=== PATIENT | female | born 1970 | race African-American/Black ===

== ENCOUNTER 2018-01-19 06:33 | Emergency (ER) | payer MEDICAID ==
[~2018-01-19] VITALS: Ht 154.9 cm; Wt 55.0 kg
[~2018-01-19 06:33] MED LIST: NORCO; OXYC-23 PO; RANI150T12 PO; REGLAN
[2018-01-19] MEDS ORDERED: SODIUM CHLORIDE 0.9% 1,000 ML IV ONE (06:56)
[2018-01-19] MEDS ORDERED: FAMOTIDINE 20MG/2ML VIAL IV STA (06:56)
[2018-01-19] MEDS ORDERED: ONDANSETRON HCL 4MG/2ML VIAL IV STA (06:56)
[2018-01-19 07:34] LABS: BASOPHILS % 0.4 % (0.0-2.0); EOSINOPHILS % 0.1 % (0.0-5.0); HEMATOCRIT. 39.8 % (36.0-48.0); HEMOGLOBIN. 13.6 g/dL (12.0-16.0); LYMPHOCYTES % 15.6 % (20.0-50.0); MEAN CORPUSCULAR HEMOGLOBIN 32.2 pg (28.0-32.0); MEAN CORPUSCULAR VOLUME 94.1 fL (81.0-99.0); MEAN PLATELET VOLUME 8.3 fl (7.4-10.4); MONOCYTES % 2.5 % (2.0-8.0); NEUTROPHILS % 81.4 % (40.0-76.0); PLATELET 343 x1000/uL (130-400); RED BLOOD CELL COUNT 4.23 mill/uL (4.2-5.4)
[2018-01-19 07:39] LABS: CHLORIDE 110 mEq/L (98-107)
[2018-01-19 07:43] LABS: ETHANOL BLOOD 30 mg/dL
[2018-01-19] MEDS ORDERED: MORPHINE SULFATE 4 MG/ML CPJ (NOT FOR IM USE) IV ONE (07:45)
[2018-01-19 08:01] LABS: PARTIAL THROMBOPLASTIN TIME 23.1 sec (23.4-31.0); PROTHROMBIN TIME 10.9 sec (9.4-11.6)
[2018-01-19 08:18] LABS: CLARITY URINE CLOUDY (CLEAR); COLOR URINE YELLOW (YELLOW); KETONES URINE 1+ (NEGATIVE); LEUKOCYTE ESTERASE URINE NEGATIVE (NEGATIVE); NITRITE URINE NEGATIVE (NEGATIVE); OCCULT BLOOD URINE 1+ (NEGATIVE); PROTEIN URINE TRACE (NEGATIVE); SPECIFIC GRAVITY URINE 1.025 (1.005-1.030); UROBILINOGEN URINE 0.2 E.U./dL (0.2-1.0)
[2018-01-19] MEDS ORDERED: ONDANSETRON HCL 4MG/2ML VIAL IV ONE (08:30)
[2018-01-19] MEDS ORDERED: MIDAZOLAM HCL 2 MG/2 ML VIAL IV ONE ×2 (08:45→10:15)
[2018-01-19 09:44] LABS: *BARBITURATES SCREEN URINE NEGATIVE (NEGATIVE); *BENZODIAZEPINES SCREEN URINE NEGATIVE (NEGATIVE)
[2018-01-19 09:45] LABS: *COCAINE SCREEN URINE NEGATIVE (NEGATIVE); METHADONE URINE SCREEN NEGATIVE (NEGATIVE); PHENCYCLIDINE URINE SCREEN NEGATIVE (NEGATIVE)
[2018-01-19 09:48] LABS: CANNABINOID URINE SCREEN PRESUMTIVE POSITIVE (NEGATIVE); OPIATES URINE SCREEN NEGATIVE (NEGATIVE)
[2018-01-19 09:49] LABS: *AMPHETAMINES SCREEN URINE NEGATIVE (NEGATIVE)
[2018-01-19] MEDS ORDERED: CEFTRIAXONE 1 G PREMIX 50 ML IV ONE (10:45)
[2018-01-19 11:25] VITALS: BP 115/72
== END 2018-01-19 11:43 | disposition home or self-care (01) ==
LOC: ER 06:33
DX: R10.816 Epigastric abdominal tenderness (principal); R11.2 Nausea with vomiting, unspecified; F10.229 Alcohol dependence with intoxication, unspecified; F17.200 Nicotine dependence, unspecified, uncomplicated; F12.10 Cannabis abuse, uncomplicated; Y90.1 Blood alcohol level of 20-39 mg/100 ml
CPT/HCPCS: 36415; 74021; 80053; 80305; 81003; 81025; 83690; 85025; 85610; 85730; 87086; 96361; 96365; 96375; 96376; 99285; G0482; J0696; J2250; J2270; J2405; J3490; J7030; Z7610

== ENCOUNTER 2018-01-21 22:08 | Emergency (ER) | payer MEDICAID | END 2018-01-22 | disposition left against medical advice (07) | LOC: ER 23:52 | DX: R10.9 Unspecified abdominal pain (principal); Z53.21 Procedure and treatment not carried out due to patient leaving prior to being seen by health care provider ==

== ENCOUNTER 2019-07-05 04:08 | Emergency (ER) | payer MEDICAID ==
[~2019-07-05] VITALS: Ht 154.9 cm; Wt 55.0 kg
[~2019-07-05 04:08] MED LIST changes: +RANI-655 PO; -RANI150T12 PO
[2019-07-05] MEDS ORDERED: ONDANSETRON HCL 4MG/2ML INJ IV STA (04:36)
[2019-07-05] MEDS ORDERED: SODIUM CHLORIDE 0.9% 1,000 ML IV ONE (04:36)
[2019-07-05 04:59] LABS: HEMOGLOBIN. 13.8 g/dL (12.0-16.0); MEAN CORPUSCULAR HEMOGLOBIN 32.5 pg (28.0-32.0); MEAN CORPUSCULAR VOLUME 96.3 fL (81.0-99.0); MEAN PLATELET VOLUME 8.2 fl (7.4-10.4); PLATELET 314 x1000/uL (130-400); RED BLOOD CELL COUNT 4.26 mill/uL (4.2-5.4)
[2019-07-05] MEDS ORDERED: KETOROLAC 30MG/ML VIAL IV ONE (05:15)
[2019-07-05 05:18] LABS: CHLORIDE 114 mEq/L (98-107)
[2019-07-05 06:28] LABS: CLARITY URINE CLOUDY (CLEAR); COLOR URINE DARK YELLOW (YELLOW); KETONES URINE 2+ (NEGATIVE); LEUKOCYTE ESTERASE URINE NEGATIVE (NEGATIVE); NITRITE URINE NEGATIVE (NEGATIVE); OCCULT BLOOD URINE TRACE (NEGATIVE); PH URINE 5.5 (4.5-8.0); PROTEIN URINE 1+ (NEGATIVE); SPECIFIC GRAVITY URINE 1.041 (1.005-1.030)
[2019-07-05] MEDS ORDERED: MORPHINE SULFATE 4 MG/ML CPJ (NOT FOR IM USE) IV ONE (06:30)
[2019-07-05 07:29] LABS: PLATELET ESTIMATE NORMAL
[2019-07-05 08:28] VITALS: BP 127/78
== END 2019-07-05 09:00 | disposition home or self-care (01) ==
LOC: ER 04:08
DX: R10.13 Epigastric pain (principal); R11.2 Nausea with vomiting, unspecified; F17.200 Nicotine dependence, unspecified, uncomplicated; F12.10 Cannabis abuse, uncomplicated; Z87.19 Personal history of other diseases of the digestive system; Z79.899 Other long term (current) drug therapy
CPT/HCPCS: 36415; 76705; 80053; 81003; 81025; 83690; 85025; 96361; 96374; 96375; 99284; J1885; J2270; J2405; J7030

== ENCOUNTER 2019-07-05 21:15 | Emergency (ER) | payer MEDICAID ==
[~2019-07-05] VITALS: Ht 160 cm; Wt 54.0 kg
[2019-07-05 21:24] VITALS: BP 148/64
== END 2019-07-05 23:50 | disposition left against medical advice (07) ==
LOC: ER 21:15
DX: R10.9 Unspecified abdominal pain (principal); Z53.21 Procedure and treatment not carried out due to patient leaving prior to being seen by health care provider

== ENCOUNTER 2019-07-06 04:27 | Emergency (ER) | payer MEDICAID ==
[~2019-07-06] VITALS: Ht 154.9 cm; Wt 54.5 kg
[2019-07-06] MEDS ORDERED: MAGNESIUM/ALUMINUM HYDROXIDE/SIMETHICONE 30ML UDC PO STA (06:26)
[2019-07-06] MEDS ORDERED: ONDANSETRON HCL 4MG/2ML INJ IV STA (06:26)
[2019-07-06] MEDS ORDERED: ACETAMINOPHEN 325MG TABLET PO STA (06:26)
[2019-07-06] MEDS ORDERED: FAMOTIDINE 20MG/2ML VIAL IV STA (06:26)
[2019-07-06] MEDS ORDERED: KETOROLAC 15MG/ML VIAL IV ONE (06:45)
[2019-07-06 07:02] VITALS: BP 141/81
== END 2019-07-06 07:11 | disposition left against medical advice (07) ==
LOC: ER 04:27
DX: R10.13 Epigastric pain (principal); R11.2 Nausea with vomiting, unspecified; R00.1 Bradycardia, unspecified; F17.210 Nicotine dependence, cigarettes, uncomplicated; Z71.6 Tobacco abuse counseling
CPT/HCPCS: 81025; 93005; 96374; 96375; 99283; 99406; J1885; J2405; J3490

== ENCOUNTER 2020-01-19 02:52 | Emergency (ER) | payer MEDICAID ==
[~2020-01-19] VITALS: Ht 154.9 cm; Wt 52.0 kg
[2020-01-19 03:42] VITALS: BP 140/64
[2020-01-19] MEDS ORDERED: MAGNESIUM/ALUMINUM HYDROXIDE/SIMETHICONE 30ML UDC PO STA (03:44)
[2020-01-19] MEDS ORDERED: VISCOUS LIDOCAINE 2% 15 ML UDC PO STA (03:44)
[2020-01-19] MEDS ORDERED: FAMOTIDINE 20MG/2ML VIAL IV STA (03:44)
[2020-01-19 03:58] LABS: CLARITY URINE CLEAR (CLEAR); COLOR URINE DARK YELLOW (YELLOW); KETONES URINE 3+ (NEGATIVE); LEUKOCYTE ESTERASE URINE TRACE (NEGATIVE); NITRITE URINE NEGATIVE (NEGATIVE); OCCULT BLOOD URINE 3+ (NEGATIVE); PROTEIN URINE 2+ (NEGATIVE); SPECIFIC GRAVITY URINE 1.036 (1.005-1.030)
[2020-01-19 04:05] LABS: BASOPHILS % 0.2 % (0.0-2.0); EOSINOPHILS % 0.5 % (0.0-5.0); HEMATOCRIT. 37.9 % (36.0-48.0); LYMPHOCYTES % 9.2 % (20.0-50.0); MEAN CORPUSCULAR HEMOGLOBIN 32.4 pg (28.0-32.0); MEAN CORPUSCULAR VOLUME 94.3 fL (81.0-99.0); MEAN PLATELET VOLUME 8.6 fl (7.4-10.4); MONOCYTES % 2.4 % (2.0-8.0); NEUTROPHILS % 87.7 % (40.0-76.0); PLATELET 341 x1000/uL (130-400); RED BLOOD CELL COUNT 4.02 mill/uL (4.2-5.4)
[2020-01-19 04:07] LABS: CHLORIDE 109 mEq/L (98-107)
== END 2020-01-19 04:38 | disposition home or self-care (01) ==
LOC: ER 02:52
DX: K29.70 Gastritis, unspecified, without bleeding (principal); F41.9 Anxiety disorder, unspecified; F12.10 Cannabis abuse, uncomplicated; Z79.899 Other long term (current) drug therapy
CPT/HCPCS: 36415; 80053; 80320; 81003; 83690; 85025; 96374; 99283; J3490; G0480